=== PATIENT | female | born 1940 | race Two or more races ===

== ENCOUNTER 2017-05-15 22:39 | Inpatient (IN) | payer MEDICARE, MEDICAID ==
[~2017-05-15] VITALS: Ht 152.4 cm; Wt 54.4 kg
--- NOTE | 2017-05-15 23:06 | NUR ---
PATIENT BIB PRIVATE AMBULANCE FROM [facility]. PT ON 5150 HOLD. HERE FOR MEDICAL CLEARENCE. PATIENT IS ALERT, UNDERSTANDS SOME TURKMEN. DENIES ANY CHEST PAIN, NO COMPLAINTS AT THIS TIME. WILL MONITOR.
[2017-05-15] MEDS ORDERED: CHOL100043 PO (23:26)
[2017-05-15] MEDS ORDERED: LORA0.5T PO (23:26)
[2017-05-15] MEDS ORDERED: CALC-957 PO (23:26)
[2017-05-15] MEDS ORDERED: MULT1TAB11 PO (23:26)
[2017-05-15] MEDS ORDERED: ACET325T53 PO (23:26)
[2017-05-15] MEDS ORDERED: QUET50TA PO (23:26)
[2017-05-15] MEDS ORDERED: MAGN400T6 PO (23:26)
[2017-05-15] MEDS ORDERED: DOCU-141 PO (23:26)
[2017-05-15 23:59] LABS: BASOPHILS # (AUTO) 0.1 K/uL (0.0-8.0); BASOPHILS % (AUTO) 1.2 % (0.0-2.0); EOSINOPHILS # (AUTO) 0.3 K/uL (0.0-0.7); EOSINOPHILS % (AUTO) 4.8 % (0.0-7.0); HEMATOCRIT 40.4 % (37-47); HEMOGLOBIN 13.3 G/DL (12.0-16.0); LYMPHOCYTES # (AUTO) 1.3 K/UL (0.8-4.8); LYMPHOCYTES % (AUTO) 20.4 % (20.5-51.5); MEAN CORPUSCULAR HEMOGLOBIN 28.3 UUG (27.0-31.0); MEAN CORPUSCULAR HGB CONC 33 g/dL (32.0-37.0); MONOCYTES # (AUTO) 0.4 K/UL (0.1-1.30); NEUTROPHILS # (AUTO) 4.2 K/UL (1.8-8.9); NEUTROPHILS % (AUTO) 66.6 % (38.5-71.5); PLATELET COUNT (AUTO) 164 K/UL (150-450); WHITE BLOOD COUNT (AUTO) 6.3 K/UL (4.0-11.2)
[2017-05-16] MEDS ORDERED: diphenhydrAMINE 50 MG/1 ML VIAL IM ONE
[2017-05-16 00:07] LABS: ALANINE AMINOTRANSFERASE 77 U/L (14-59); ALKALINE PHOSPHATASE 122 U/L (50-136); ASPARTATE AMINOTRANSFERASE 68 U/L (15-37); BILIRUBIN,DIRECT 0.2 mg/dL (0.0-0.2); BILIRUBIN,TOTAL 0.4 mg/dL (0.2-1.0); CARBON DIOXIDE 29 mmol/L (21-32); CHLORIDE 107 mmol/L (98-107); CREATININE 0.7 mg/dL (0.6-1.3); ETHANOL < 3 MG/DL (0-0); GLUCOSE 96 mg/dL (74-106); POTASSIUM 4.4 mmol/L (3.5-5.1); TOTAL PROTEIN, SERUM 8.4 g/dL (6.4-8.2); UREA NITROGEN, BLOOD 18 mg/dL (7-18)
[2017-05-16] MEDS ORDERED: diphenhydrAMINE 50 MG/1 ML VIAL ONE (00:12)
[2017-05-16 00:15] LABS: THYROID STIMULATING HORMONE 2.192 mIU/mL (0.358-3.740)
--- NOTE | 2017-05-16 00:32 | NUR ---
EPIC PANEL CALLED.
[2017-05-16 01:24] LABS: ACETAMINOPHEN < 2.0 ug/mL (10-30)
[2017-05-16] MEDS ORDERED: ACETAMINOPHEN 325 MG TABLET PO PRN ×2 (01:30)
[2017-05-16] MEDS ORDERED: MAG HYDROX/AL HYDROX/SIMETH 30 ML LIQUID UDC PO PRN (01:30)
[2017-05-16] MEDS ORDERED: MAGNESIUM HYDROXIDE 30 ML LIQUID UDC PO PRN ×2 (01:30)
[2017-05-16] MEDS ORDERED: ONDANSETRON 4 MG/2 ML VIAL IV PRN (01:30)
[2017-05-16] MEDS ORDERED: ZOLPIDEM 5 MG TABLET PO PRN ×2 (01:30)
[2017-05-16] MEDS ORDERED: Z GUARD REMEDY PASTE 57 GM TUBE TOP PRN (01:30)
[2017-05-16] MEDS ORDERED: HYDROCODONE/APAP 5-325MG TABLET PO PRN (01:30)
--- NOTE | 2017-05-16 01:30 | NUR ---
PATIENT TRANSFERRED INTO MED SURG UNIT FROM ED AT 0130 BY MALCOM. PATIENT IN STABLE CONDITION, NO SIGNS/SYMPTOMS OF DISTRESS. ALERT/ORIENTED X1. VERY DIFFICULT TO COMPREHEND WHAT PATIENT IS VERBALIZING. SLURRED SPEECH. NO FALL NOTED. 1 TO 1 SITTER IMPLEMENTED. BED IN LOCKED, LOW POSITION. BED ALARM ON, CALL LIGHT WITHIN REACH. SAFETY AND COMFORT PROVIDED.
[2017-05-16 02:00] LABS: *BILIRUBIN,URIN NEGATIVE (NEGATIVE); *BLOOD, URINE NEGATIVE (NEGATIVE); *COLOR,URINE YELLOW (YELLOW); *KETONES,URINE NEGATIVE (NEGATIVE); *PROTEIN,URINE TRACE (NEGATIVE); *UROBILINOGEN,URINE 0.2 E.U./dl (NORMAL); LEUKOCYTE ESTERASE ,URINE TRACE (NEGATIVE); NITRITE, URINE NEGATIVE (NEGATIVE); UGLUCOSE NEGATIVE (NEGATIVE)
[2017-05-16 02:04] VITALS: BP 103/61
[2017-05-16 02:09] LABS: *CLARITY,URINE HAZY (CLEAR)
[2017-05-16 02:10] LABS: BACTERIA,URINE MODERATE /HPF (NONE SEEN); RBC,URINE 0-3 /HPF (0-3); SQUAMOUS EPITHELIAL CELL,UR FEW /HPF (NONE SEEN)
[2017-05-16 02:15] LABS: *AMPHETAMINE, URINE NEGATIVE (NEGATIVE); *BARBITURATE, URINE NEGATIVE (NEGATIVE); *CANNABINOID, URINE NEGATIVE (NEGATIVE); *COCCAINE, URINE NEGATIVE (NEGATIVE); *OPIATE, URINE NEGATIVE (NEGATIVE); *PHENCYCLIDINE SCREEN,URINE NEGATIVE (NEGATIVE)
--- NOTE | 2017-05-16 06:06 | NUR ---
PATIENT STAYED AWAKE THE ENTIRE NIGHT AFTER ADMITTED [facility] MED SURG FLOOR AT 0130. PATIENT VERBALIZATIONS ARE NOT UNDERSTOOD. PATIENT CONTINUES TO BE CONFUSED. REORIENTATION IMPLEMENTED FOR PATIENT. 1 TO 1 SITTER CONTINUES TO WATCH PATIENT. PATIENT IS SAFE, NO FALLS NOTED. CALL LIGHT WITHIN REACH. BED IN LOW, LOCKED POSITION. COMFORT AND SAFETY PROVIDED.
[2017-05-16] MEDS ORDERED: IVERMECTIN 3 MG TABLET PO ONE ×3 (07:11→07:30)
[2017-05-16] MEDS ORDERED: PERMETHRIN 5% CREAM 60 GM TUBE TP ONE (07:12)
[2017-05-16 08:00] VITALS: BP 141/50
[2017-05-16] MEDS: SULFAMETH/TRIMETH 800/160 MG TABLET PO SCH ×3 (10:15→20:58)
[2017-05-16] MEDS: MULTIVIT, IRON, MIN NO. 8, FA TABLET PO SCH (10:15)
[2017-05-16] MEDS ORDERED: LORAZEPAM 2 MG/1 ML VIAL IM STA (11:12)
--- NOTE | 2017-05-16 11:15 | NUR ---
PATIENT IS AGITATED AGGRESSIVE YELLING GRABBING PINCHING AND BITTING STANDING IN THE MIDDLE OF HER ROOM NAKED REFUSED TO HAVE HER CLOTHES PUT BACK ON OR SIT ON THE CHAIR OR BED AT [facility] FOR FALLS AND INJURIES PATIENT IS VERY UNSTEADY SWINGING ATTEMPTED TO GIVE HER THE ORAL ATIVAN ORDERED BUT PATIENT REFUSED TO TAKE SO I CALLED DR DUBOIS AND LEFT HIM A MESSAGE.
--- NOTE | 2017-05-16 11:20 | NUR ---
DR DUBOIS RETURNED CALL WITH NEW ORDERS AND NOTED.
--- NOTE | 2017-05-16 11:30 | NUR ---
ATIVAN GIVEN IM ORDERED WITH WITH MUCH DIFFICULTY PATIENT REMAINS AGGRESSIVE FIGHTING SCRATCHING BITTING AND VERY DIFFICULT.WILL CONTINUE TO OBSERVE.
[2017-05-16] MEDS: CHOLECALCIFEROL 1,000 UNIT TABLET PO SCH ×2 (13:00→17:03)
--- NOTE | 2017-05-16 15:12 | NUR ---
PATIENT MORE ALERT AND MORE COOPERATIVE AT THIS TIME.DR DUBOIS HERE TO SEE PATIENT AND STATED TO ATTEMPT TO GIVE HER THE AM DOSE THAT SHE MISSED GIVEN AND SHE TOOK IT.
--- NOTE | 2017-05-16 15:48 | NUR ---
ASSISTED BACK INTO BED AND STRAIGHT CATH FOR URINE SPECIMEN ORDERED AND SENT TO THE LAB.
[2017-05-16 15:53] VITALS: BP 150/65
[2017-05-16 17:03] LABS: *BILIRUBIN,URIN NEGATIVE (NEGATIVE); *BLOOD, URINE Trace-intact (NEGATIVE); *CLARITY,URINE CLOUDY (CLEAR); *COLOR,URINE YELLOW (YELLOW); *KETONES,URINE NEGATIVE (NEGATIVE); *PROTEIN,URINE NEGATIVE (NEGATIVE); LEUKOCYTE ESTERASE ,URINE TRACE (NEGATIVE); NITRITE, URINE NEGATIVE (NEGATIVE); UGLUCOSE NEGATIVE (NEGATIVE)
[2017-05-16] MEDS: CALCIUM CARB/VITAMIN D 600-400 MG TABLET PO SCH (17:03)
[2017-05-16 17:14] LABS: BACTERIA,URINE MODERATE /HPF (NONE SEEN); RBC,URINE 0-3 /HPF (0-3); SQUAMOUS EPITHELIAL CELL,UR FEW /HPF (NONE SEEN)
--- NOTE | 2017-05-16 17:57 | NUR ---
PATIENT IS RESTING IN BED CONFUSED AND DISORIENTED ALL NEEDS ANTICIPATED AND SATISFIED MADE COMFORTABLE WITH ONE ONE SITTER FOR SAFETY WILL CONTINUE TO OBSERVE.
--- NOTE | 2017-05-16 19:30 | NUR ---
RECEIVED SHIFT REPORT FROM PREVIOUS SHIFT NURSE. PATIENT APPEARS TO BE CONFUSED. NO SIGNS/SYMPTOMS OF DISTRESS. STABLE CONDITION. PATIENT APPEARS TO BE LAYING IN BED COMFORTABLE WITH NO SIGNS OF COMBATIVENESS. 1 TO 1 SITTER PRESENT. BED IN LOCKED, LOW POSITION. CONTACT PRECAUTIONS IMPLEMENTED. SAFETY AND COMFORT WILL BE IMPLEMENTED.
[2017-05-16 20:00] VITALS: BP 164/59
[2017-05-16 20:30] VITALS: BP 156/76
[2017-05-16] MEDS: QUETIAPINE FUMARATE 25 MG TABLET PO SCH (20:58)
[2017-05-16] MEDS: DOCUSATE SODIUM 100 MG CAPSULE PO SCH (20:58)
--- NOTE | 2017-05-16 20:58 | NUR ---
SEROQUEL 50 MG ADMINISTERED TO PATIENT AT 2057.
--- NOTE | 2017-05-16 21:00 | NUR ---
BACTRIM DS ADMINISTERED TO PATIENT AT 2100.
[2017-05-16] MEDS: Z GUARD REMEDY PASTE 57 GM TUBE TOP SCH (21:03)
--- NOTE | 2017-05-16 21:15 | NUR ---
COMPLETE BATH PROVIDED TO PATIENT. COMPLETE LINEN CHANGE PROVIDED. GOWN/DIAPERS NEWLY CHANGED AFTER COMPLETE BATH.
[2017-05-17 04:51] VITALS: BP 126/57
[2017-05-17 05:00] VITALS: BP 126/57
--- NOTE | 2017-05-17 06:15 | NUR ---
PATIENT SLEPT THROUGH MOST OF THE NIGHT. PATIENT DID NOT EXPERIENCE ANY MANIC EPISODES. APPEARED RELAXED IN BED. BED IN LOCKED, LOW POSITION. NO FALLS NOTED. 1:1 SITTER OBSERVED PATIENT THROUGHOUT THE NIGHT. SAFETY AND COMFORT PROVIDED TO PATIENT.
[2017-05-17 06:52] LABS: ALANINE AMINOTRANSFERASE 74 U/L (14-59); ALKALINE PHOSPHATASE 104 U/L (50-136); ASPARTATE AMINOTRANSFERASE 75 U/L (15-37); BILIRUBIN,TOTAL 0.5 mg/dL (0.2-1.0); CARBON DIOXIDE 24 mmol/L (21-32); CHLORIDE 106 mmol/L (98-107); CHOLESTEROL 140 mg/dL (<200); CREATININE 0.8 mg/dL (0.6-1.3); GLUCOSE 90 mg/dL (74-106); HDL CHOLESTEROL 49 mg/dL (40-60); MAGNESIUM 1.7 mg/dL (1.8-2.4); PHOSPHOROUS 3.6 mg/dL (2.5-4.9); POTASSIUM 4.2 mmol/L (3.5-5.1); TOTAL PROTEIN, SERUM 7.9 g/dL (6.4-8.2); TRIGLYCERIDES 49 MG/DL (30-150); UREA NITROGEN, BLOOD 14 mg/dL (7-18)
[2017-05-17 07:29] LABS: BASOPHILS % (AUTO) 0.4 % (0.0-2.0); EOSINOPHILS # (AUTO) 0.3 K/uL (0.0-0.7); EOSINOPHILS % (AUTO) 5.8 % (0.0-7.0); HEMATOCRIT 42.2 % (37-47); HEMOGLOBIN 13.8 G/DL (12.0-16.0); LYMPHOCYTES # (AUTO) 0.4 K/UL (0.8-4.8); LYMPHOCYTES % (AUTO) 7.7 % (20.5-51.5); MEAN CORPUSCULAR HEMOGLOBIN 28.2 UUG (27.0-31.0); MEAN CORPUSCULAR HGB CONC 33 g/dL (32.0-37.0); MEAN CORPUSCULAR VOLUME 86.5 FL (81.0-99.0); MONOCYTES # (AUTO) 0.5 K/UL (0.1-1.30); MONOCYTES % (AUTO) 8.5 % (0.0-11.0); NEUTROPHILS # (AUTO) 4.4 K/UL (1.8-8.9); NEUTROPHILS % (AUTO) 77.6 % (38.5-71.5); PLATELET COUNT (AUTO) 160 K/UL (150-450); RED BLOOD CELL COUNT(AUTO) 4.88 MIL/UL (4.2-5.4); WHITE BLOOD COUNT (AUTO) 5.6 K/UL (4.0-11.2)
[2017-05-17] MEDS: CHOLECALCIFEROL 1,000 UNIT TABLET PO SCH ×3 (08:39→17:24)
[2017-05-17] MEDS: CALCIUM CARB/VITAMIN D 600-400 MG TABLET PO SCH ×2 (08:39→17:24)
[2017-05-17] MEDS: QUETIAPINE FUMARATE 25 MG TABLET PO SCH ×2 (08:39→20:54)
[2017-05-17] MEDS: SULFAMETH/TRIMETH 800/160 MG TABLET PO SCH (08:39)
[2017-05-17] MEDS: MULTIVIT, IRON, MIN NO. 8, FA TABLET PO SCH (08:39)
[2017-05-17] MEDS: Z GUARD REMEDY PASTE 57 GM TUBE TOP SCH ×2 (08:40→20:54)
[2017-05-17] MEDS ORDERED: Medication Not On Formulary EA (Multivitamins W-Minerals (Multivitamin With Minerals) 1 PO SCH (09:00)
--- NOTE | 2017-05-17 09:27 | NUR ---
AWAKE ALERT TO SELF ALL NEEDS ANTICIPATED AND SATISFIED MAX ASSIST FOR ALL ADL.COMPLIANT WITH MEDICATIONS AND CARE.REMAIN ON ATB WITH NO ADVERSE OR ALLERGIC REACTIONS AT THIS TIME.ON ONE ON ONE SITTER FOR OBSERVATION.MADE COMFORTABLE AND WILL CONTINUE TO OBSERVE.
[2017-05-17] MEDS ORDERED: MAGNESIUM OXIDE 400 MG TABLET PO ONE (09:45)
--- NOTE | 2017-05-17 10:35 | NUR ---
PATIENT IS AGITATED AND RESTLESS KICKED THE DRY WALL NAILER WHILE ATTEMPTING TO EXAMINE HER CONFUSED AND DISORIENTED TALKING IN OTHER LANGUAGE UNABLE TO REASON OR REDIRECT ATTEMPTED TO GIVE HER ATIVAN ORDERED BUT PATIENT REFUSED TO TAKE ATTEMPTED TO KICK ME TOO. WILL CONTINUE TO OBSERVE.
--- NOTE | 2017-05-17 12:15 | NUR ---
DR DUBOIS HERE TO SEE PATIENT WITH NO NEW ORDER AT THIS TIME.
[2017-05-17 14:03] VITALS: BP 132/61
[2017-05-17] MEDS: LORAZEPAM 0.5 MG TABLET PO PRN (14:14)
[2017-05-17] MEDS: NITROFURANTOIN/NITROFURAN MAC 100 MG CAPSULE PO SCH ×2 (14:14→20:54)
--- NOTE | 2017-05-17 14:15 | NUR ---
FINALLY WAS ABLE TO ADMINISTER ATIVAN IN APPLE SAUCE TO THE PATIENT AND WILL OBSERVE.
--- NOTE | 2017-05-17 18:00 | NUR ---
PATIENTS DAUGHTER IS HERE AND IS ASSISTING WITH HER DINNER APPETITE IS POOR BUT SHE IS TOLERATING AND EATING APPLE SAUCE/CHOCOLATE PUDDING AND BOOST WILL CONTINUE TO OBSERVE.
--- NOTE | 2017-05-17 20:00 | NUR ---
Pt received laying in bed, no acute distress noted. Pt is disorganized and confused. No aggressive or combative behavior but remains unpredictable. 1:1 sitter at bedside.
[2017-05-17 20:11] VITALS: BP 126/66
[2017-05-17] MEDS: DOCUSATE SODIUM 100 MG CAPSULE PO SCH (21:00)
--- NOTE | 2017-05-18 07:30 | NUR ---
RECEIVED PATIENT AWAKE ALERT TO SELF CONFUSED AND DISORIENTED GOT ANGRY AGITATED AND SCREAMING WHILE SHE WAS BEING CHANGED DIFFICULT TO REDIRECT ALL NEEDS ANTICIPATED AND SATISFIED.MAX ASSIST GIVEN.REMAIN ON ONE ON ONE SITTER OBSERVATION FOR SAFETY MADE COMFORTABLE AND WILL CONTINUE TO OBSERVE AND PROVIDE SAFE AND THERAPEUTIC ENVIRONMENT AT ALL TIMES.
[2017-05-18 08:15] VITALS: BP 120/61
[2017-05-18] MEDS: NITROFURANTOIN/NITROFURAN MAC 100 MG CAPSULE PO SCH ×2 (08:27→20:34)
[2017-05-18] MEDS: MULTIVIT, IRON, MIN NO. 8, FA TABLET PO SCH (08:27)
[2017-05-18] MEDS: QUETIAPINE FUMARATE 25 MG TABLET PO SCH ×2 (08:27→20:34)
[2017-05-18] MEDS: Z GUARD REMEDY PASTE 57 GM TUBE TOP SCH ×2 (08:28→20:41)
[2017-05-18] MEDS: CALCIUM CARB/VITAMIN D 600-400 MG TABLET PO SCH ×2 (08:28→17:00)
[2017-05-18] MEDS: CHOLECALCIFEROL 1,000 UNIT TABLET PO SCH ×3 (08:28→17:00)
--- NOTE | 2017-05-18 10:53 | NUR ---
PATIENT SEEN AND EXAMINED BY DR DUBOIS PATIENT IS VERY AGITATED SCREAMING AND YELLING AND UNABLE TO REDIRECT MD ORDERED FOR PATIENT TO BE GIVEN ZYPREXA IM ONE TIME ORDER AND NOTED.
[2017-05-18] MEDS ORDERED: OLANZAPINE 10 MG VIAL IM ONE (11:00)
--- NOTE | 2017-05-18 11:28 | NUR ---
ZYPREXA GIVEN IM ORDERED AND WILL CONTINUE TO OBSERVE.
[2017-05-18 11:30] VITALS: BP 114/67
--- NOTE | 2017-05-18 11:30 | NUR ---
VITALS CHECKED TEMP 97.1 PULSE 81 RESP 18 B/P 114/67 PATIENT IS IN SHRUTHI/CHAIR REPOSITIONED AND MADE COMFORTABLE ALL NEEDS ANTICIPATED AND SATISFIED.
--- NOTE | 2017-05-18 11:55 | NUR ---
CALLED PATIENTS DAUGHTER [phone] AND NOTIFIED HER THAT HER MOTHER WAS CLEARED BY THE DOCTOR FROM BEING CONTAGIOUS AND PER THE INFECTION CONTROL SHE COULD COHORT WITH THE OTHER PATIENTS AND WILL BE MOVED TO ROOM 140 BED B.I ALSO NOTIFIED HER THAT THE MHU HAS RESTRICTED VISITING HOURS AND PROVIDED HER WITH THE PHONE NUMBER OF THE [facility] AND INSTRUCTED HER TO CALL THEM AND KNOW THOSE VISITING HOURS AND SHE EXPRESSED UNDERSTANDING.
--- NOTE | 2017-05-18 12:03 | NUR ---
PATIENT MOVED TO ROOM 140 BY SHRUTHI/CHAIR IN SATISFACTORY CONDITION.
[2017-05-18 16:00] VITALS: BP 129/62
[2017-05-18 20:32] VITALS: BP 111/55
[2017-05-18] MEDS: DOCUSATE SODIUM 100 MG CAPSULE PO SCH (20:34)
[2017-05-19] MEDS ORDERED: ONDANSETRON ODT 4 MG TAB.RAPDIS SL PRN (07:00)
[2017-05-19 07:30] VITALS: BP 133/74
[2017-05-19] MEDS: NITROFURANTOIN/NITROFURAN MAC 100 MG CAPSULE PO SCH ×3 (09:00→20:35)
[2017-05-19] MEDS: CHOLECALCIFEROL 1,000 UNIT TABLET PO SCH ×4 (09:00→17:06)
[2017-05-19] MEDS: QUETIAPINE FUMARATE 25 MG TABLET PO SCH ×4 (09:00→20:35)
[2017-05-19] MEDS: CALCIUM CARB/VITAMIN D 600-400 MG TABLET PO SCH ×3 (09:00→17:06)
[2017-05-19] MEDS: MULTIVIT, IRON, MIN NO. 8, FA TABLET PO SCH ×2 (09:00→11:16)
[2017-05-19] MEDS: Z GUARD REMEDY PASTE 57 GM TUBE TOP SCH ×2 (10:09→21:31)
[2017-05-19] MEDS: LORAZEPAM 0.5 MG TABLET PO PRN (11:14)
--- NOTE | 2017-05-19 12:24 | NUR ---
Initial DC Plan: Patient arrived from [facility] [[address] [place] [address]; ]. GANESH spoke with patient's daughter/DPBRIAN Pinedo [[phone]] who stated she would like patient to return to the facility when ready. GANESH spoke with Nazanin at [facility] who stated they will accept the patient back upon discharge. GANESH will follow up with MD, patient, and patient's family to discuss most appropriate discharge plans. SW will form a safe and proper discharge.
[2017-05-19 16:20] VITALS: BP 130/71
[2017-05-19] MEDS: DOCUSATE SODIUM 100 MG CAPSULE PO SCH (20:35)
[2017-05-19 20:45] VITALS: BP 143/73
[2017-05-20 07:30] VITALS: BP 146/68
[2017-05-20] MEDS: QUETIAPINE FUMARATE 25 MG TABLET PO SCH ×3 (08:23→21:00)
[2017-05-20] MEDS: CALCIUM CARB/VITAMIN D 600-400 MG TABLET PO SCH ×2 (08:23→16:59)
[2017-05-20] MEDS: NITROFURANTOIN/NITROFURAN MAC 100 MG CAPSULE PO SCH ×2 (08:24→21:00)
[2017-05-20] MEDS: Z GUARD REMEDY PASTE 57 GM TUBE TOP SCH ×2 (08:24→21:00)
[2017-05-20] MEDS: MULTIVIT, IRON, MIN NO. 8, FA TABLET PO SCH (08:24)
[2017-05-20] MEDS: CHOLECALCIFEROL 1,000 UNIT TABLET PO SCH ×3 (08:24→16:59)
[2017-05-20 15:27] VITALS: BP 161/78
[2017-05-20] MEDS ORDERED: diphenhydrAMINE 25 MG CAP PO PRN (16:45)
[2017-05-20] MEDS: LORAZEPAM 0.5 MG TABLET PO PRN (16:59)
[2017-05-20 20:40] VITALS: BP 125/62
[2017-05-20] MEDS: DOCUSATE SODIUM 100 MG CAPSULE PO SCH (20:59)
[2017-05-21 07:30] VITALS: BP 131/66
[2017-05-21] MEDS: MULTIVIT, IRON, MIN NO. 8, FA TABLET PO SCH (08:25)
[2017-05-21] MEDS: CHOLECALCIFEROL 1,000 UNIT TABLET PO SCH ×3 (08:25→16:05)
[2017-05-21] MEDS: NITROFURANTOIN/NITROFURAN MAC 100 MG CAPSULE PO SCH ×2 (08:26→21:02)
[2017-05-21] MEDS: CALCIUM CARB/VITAMIN D 600-400 MG TABLET PO SCH ×2 (08:26→16:05)
[2017-05-21] MEDS: QUETIAPINE FUMARATE 25 MG TABLET PO SCH ×3 (08:26→21:02)
[2017-05-21] MEDS: Z GUARD REMEDY PASTE 57 GM TUBE TOP SCH ×2 (09:16→21:20)
[2017-05-21 15:00] VITALS: BP 131/87
[2017-05-21] MEDS ORDERED: Z GUARD REMEDY PASTE 57 GM TUBE TOP PRN (15:45)
[2017-05-21] MEDS: LORAZEPAM 0.5 MG TABLET PO PRN (18:34)
--- NOTE | 2017-05-21 18:34 | NUR ---
Ativan 0.5mg was pulled from the Pyxis and pt refused to take the Ativan. The Ativan was wasted with charge nurse Germaine.
[2017-05-21 20:28] VITALS: BP 132/85
[2017-05-21] MEDS: DOCUSATE SODIUM 100 MG CAPSULE PO SCH (21:02)
[2017-05-22 07:30] VITALS: BP 115/52
--- NOTE | 2017-05-22 07:30 | NUR ---
Pt received laying in daisy chair no acute distress noted. No aggressive or combative behavior noted. .
[2017-05-22] MEDS: NITROFURANTOIN/NITROFURAN MAC 100 MG CAPSULE PO SCH (10:33)
[2017-05-22] MEDS: CALCIUM CARB/VITAMIN D 600-400 MG TABLET PO SCH (10:33)
[2017-05-22] MEDS: MULTIVIT, IRON, MIN NO. 8, FA TABLET PO SCH (10:34)
[2017-05-22] MEDS: Z GUARD REMEDY PASTE 57 GM TUBE TOP SCH (10:34)
[2017-05-22] MEDS: CHOLECALCIFEROL 1,000 UNIT TABLET PO SCH ×2 (10:34→12:32)
[2017-05-22] MEDS: QUETIAPINE FUMARATE 25 MG TABLET PO SCH (10:34)
--- NOTE | 2017-05-22 10:34 | NUR ---
DC Note: Patient will be discharging to [facility] [[address] [place] [address]; [phone]] via ambulance at 1pm. GANESH spoke with Sun at [facility] to confirm discharge plans. Patient's daughter/DPBRIAN Pinedo [[phone]] is aware and agreeable to discharge plans. Patient will follow up with Dr. Sanchez (Elevator Constructor Helper) and Dr. Santos (Psychiatrist).
--- NOTE | 2017-05-22 10:41 | NUR ---
Clinical Program Consultant: SW submitted patient's Firearms Mental Health Report to [employer] at 10:40am.
--- NOTE | 2017-05-22 11:00 | NUR ---
PATIENT SEEN AND EXAMINED BY DR DUBOIS
--- NOTE | 2017-05-22 13:00 | NUR ---
RN REPORT GIVEN TO KAILYN TO OVER [facility].
[2017-05-22 14:00] VITALS: BP 118/50
--- NOTE | 2017-05-22 14:31 | NUR ---
D/C ORDERS RECEIVED NOTED AND CARRIED OUT.D/C INSTRUCTIONS AND RN REPORT GIVEN TO THE RETIREMENT.PT LEFT THE FACILITY VIA AMBULANCES IN STABLE CONDITION.
[2017-05-23] MEDS ORDERED: PERMETHRIN 5% CREAM 60 GM TUBE TP ONE (19:30)
== END 2017-05-22 14:30 | DRG 885 ==
LOC: ER 22:40 → GPSOV 05-16 00:42 → GPS 05-18 12:15
PROVIDERS: ADMIT Psychiatry & Neurology Psychiatry; ATTEND Internal Medicine
DX: F23 Brief psychotic disorder (principal); F02.81 Dementia in other diseases classified elsewhere, unspecified severity, with behavioral disturbance; G93.40 Encephalopathy, unspecified; E88.09 Other disorders of plasma-protein metabolism, not elsewhere classified; G30.9 Alzheimer's disease, unspecified; E83.42 Hypomagnesemia; B86 Scabies; G47.9 Sleep disorder, unspecified; N39.0 Urinary tract infection, site not specified; Z79.899 Other long term (current) drug therapy; Z90.49 Acquired absence of other specified parts of digestive tract; B96.20 Unspecified Escherichia coli [E. coli] as the cause of diseases classified elsewhere; Z16.23 Resistance to quinolones and fluoroquinolones; M19.012 Primary osteoarthritis, left shoulder; Z88.0 Allergy status to penicillin; Z86.19 Personal history of other infectious and parasitic diseases; I10 Essential (primary) hypertension; Z86.73 Personal history of transient ischemic attack (TIA), and cerebral infarction without residual deficits; Z87.440 Personal history of urinary (tract) infections; M62.81 Muscle weakness (generalized)
CPT/HCPCS: 36415; 71010; 80307; 83735; 84100; 84443; 85025; 87077; 87086; 93005; A4663; C1758; G0480; G0480-TC; J1200; J2060; J2358; Q0162